=== PATIENT | female | born 1990 | race Two or more races ===

== ENCOUNTER 2020-06-25 02:00 | Observation (INO) | payer MEDICAID ==
[~2020-06-25] VITALS: Ht 149.9 cm; Wt 70.3 kg
[2020-06-25] MEDS ORDERED: LACTATED RINGERS 1,000 ML IV SCH (03:30)
[2020-06-25] MEDS ORDERED: CITRIC ACID/SODIUM CITRATE SOLN 30ML UDC PO SCH (03:30)
[2020-06-25] MEDS ORDERED: ACETAMINOPHEN 500MG TABLET PO SCH (03:30)
[2020-06-25] MEDS ORDERED: PNV1TABL76 PO (03:32)
[2020-06-25] MEDS ORDERED: FERR324T4 MT (03:32)
[2020-06-25 04:14] LABS: CLARITY URINE CLEAR (CLEAR); COLOR URINE YELLOW (YELLOW); KETONES URINE NEGATIVE (NEGATIVE); LEUKOCYTE ESTERASE URINE 2+ (NEGATIVE); NITRITE URINE NEGATIVE (NEGATIVE); OCCULT BLOOD URINE NEGATIVE (NEGATIVE); PH URINE 7.5 (4.5-8.0); PROTEIN URINE NEGATIVE (NEGATIVE); SPECIFIC GRAVITY URINE 1.011 (1.005-1.030)
[2020-06-25 04:19] LABS: CHLORIDE 106 mEq/L (98-107)
[2020-06-25 04:25] LABS: INR 0.9; PROTHROMBIN TIME 9.8 sec (9.6-11.0)
[2020-06-25 04:32] LABS: BASOPHILS % 0.3 % (0.0-2.0); EOSINOPHILS % 0.6 % (0.0-5.0); HEMATOCRIT. 33.2 % (36.0-48.0); HEMOGLOBIN. 11.5 g/dL (12.0-16.0); LYMPHOCYTES % 16.4 % (20.0-50.0); MEAN CORPUSCULAR HEMOGLOBIN 29.6 pg (28.0-32.0); MEAN PLATELET VOLUME 8.9 fl (7.4-10.4); NEUTROPHILS % 78.7 % (40.0-76.0); PLATELET 297 x1000/uL (130-400); RED BLOOD CELL COUNT 3.87 mill/uL (4.2-5.4); RED CELL DISTRIBUTION WIDTH 15.5 % (11.6-14.6)
== END 2020-06-25 06:55 | disposition home or self-care (01) ==
LOC: 8 EST LDRP 02:00
PROVIDERS: ADMIT Obstetrics & Gynecology; ATTEND Obstetrics & Gynecology
DX: O26.893 Other specified pregnancy related conditions, third trimester (principal); R10.13 Epigastric pain; O99.891 Other specified diseases and conditions complicating pregnancy; M54.5 Low back pain; Z3A.38 38 weeks gestation of pregnancy
CPT/HCPCS: 36415; 59025; 80053; 81003; 84550; 85025; 85384; 85610; 85730; 96360; 96361; G0378; 99281